=== PATIENT | female | born 1930 | race Caucasian/White ===

== ENCOUNTER 2016-06-04 18:28 | Emergency (ER) | payer MEDICARE ==
--- NOTE | 2016-06-04 20:56 | CT ---
EXAMINATION:CT SCAN HEAD W/O CONTRAST. CLINICAL INDICATION:Head trauma from ground-level fall. Posterior scalp laceration. COMPARISON: None TECHNIQUE: A Cranial CT was performed using a [employer] multislice CT scanner. Axial images were acquired from just above the vertex through the skull base. 4 mm stacked axial, sagittal, and coronal reconstructed images were reviewed. FINDINGS: The CSF-containing spaces are prominent throughout. There is mild diminished attenuation of the periventricular white matter tracts. No acute intracranial hemorrhage or extra-axial fluid collections are identified.:There is no mass effect or midline shift. The posterior fossa is unremarkable. The cerebellar pontine angle cisterns are normal and symmetric. The osseous structures are intact. The paranasal sinuses are unremarkable. The orbits and retrobulbar regions are unremarkable.:The mastoid sinuses are clear. A left posterior parietal scalp laceration is noted. This is near the vertex. The remainder of the overlying soft tissues are unremarkable. IMPRESSION: 1. No acute intracranial abnormality or skull fracture. 2. Left posterior parietal scalp laceration. 3. 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 The findings were uploaded to the electronic medical record for review at approximately 7:23 PM 06/04/2016
== END 2016-06-04 21:01 | disposition home or self-care (01) ==
LOC: ED 18:28
DX: S01.81XA Laceration without foreign body of other part of head, initial encounter (principal); I10 Essential (primary) hypertension; W10.9XXA Fall (on) (from) unspecified stairs and steps, initial encounter; Y93.01 Activity, walking, marching and hiking